=== PATIENT | female | born 1985 | race Caucasian/White ===

== ENCOUNTER 2024-03-26 12:57 | Emergency (ER) | payer MEDICAID, SELFPAY ==
[2024-03-26] MEDS ORDERED: Bacitracin 1 PK ONE (13:41)
[2024-03-26] MEDS ORDERED: Ibuprofen 200 MG TAB ONE (13:41)
== END 2024-03-26 13:53 | disposition home or self-care (01) ==
LOC: NAV ERS 12:57
DX: S00.83XA Contusion of other part of head, initial encounter (principal); X58.XXXA Exposure to other specified factors, initial encounter
CPT/HCPCS: 99283